=== PATIENT | female | born 1970 | race Caucasian/White ===

== ENCOUNTER 2018-03-30 15:06 | Emergency (ER) | payer SELFPAY ==
[~2018-03-30] VITALS: Ht 170.2 cm; Wt 54.4 kg
[2018-03-30 15:53] VITALS: BP 177/77
[2018-03-30 16:07] LABS: Urine Pregnacy Test Negative (Negative)
[2018-03-30 16:25] LABS: Acetaminophen < 2.0 ug/mL (10-30)
[2018-03-30 16:26] LABS: Alcohol, Urine < 3.0 mg/dL (0-5); Amphetamine Screen, Urine POSITIVE (NEGATIVE); Barbiturate Scree,Urine NEGATIVE (NEGATIVE); Benzodiazephine Screen, Urine NEGATIVE (NEGATIVE); Cannabinoid Screen, Urine POSITIVE (NEGATIVE); Cocaine Screen, Urine NEGATIVE (NEGATIVE); Opiate Scree,Urine NEGATIVE (NEGATIVE); Phencyclidine Screen, Urine NEGATIVE (NEGATIVE)
== END 2018-03-30 17:27 | disposition home or self-care (01) ==
LOC: ER 15:15
DX: F15.10 Other stimulant abuse, uncomplicated (principal); F12.10 Cannabis abuse, uncomplicated; F17.210 Nicotine dependence, cigarettes, uncomplicated; Z88.0 Allergy status to penicillin; Z32.02 Encounter for pregnancy test, result negative
CPT/HCPCS: 36415; 80307; 80320; 80329; 81025